=== PATIENT | female | born 1980 | race Caucasian/White ===

== ENCOUNTER → 2019-05-18 | Outpatient (CLI) | payer OTHER ==
[2017-06-08 05:36] VITALS: BMI 29.1
[~2019-05-18] MED LIST: FERR-53 PO; IBU800 PO; IBUP800T37 PO; KET10 PO; LEVO50TA86 PO; OMEP-218 PO; PER PO; PREN-85 PO; [UNRECOGNIZED DRUG - OTHER] PO
== END ==
LOC: LAB 11:02
PROVIDERS: ATTEND Nurse Practitioner Family
DX: K59.00 Constipation, unspecified (principal); R19.7 Diarrhea, unspecified; R10.9 Unspecified abdominal pain
CPT/HCPCS: 83630; 87045; 87177; 87324; 87338; 87449